=== PATIENT | male | born 1985 | race Caucasian/White ===

== ENCOUNTER 2017-05-09 10:17 | Emergency (ER) | payer OTHER ==
[2017-05-09 10:33] VITALS: BP 139/80; PULSE 70; RESP 20; TEMP 98
[2017-05-09] MEDS ORDERED: predniSONE 50 MG TAB PO STA (10:59)
--- NOTE | 2017-05-09 11:03 | ED ---
General Adult HPI - General Chief complaint: Eye Problems Stated complaint: rt eye pain Time Seen by Provider: 05/09/17 10:38 Source: patient, RN notes reviewed Mode of arrival: ambulatory Limitations: no limitations - History of Present Illness Initial comments: 32-year-old male presents emergency Department chief complaint rash on his face. Patient states that he woke up pressure with it. Patient states worse today. Patient states he feels like it is burning and very itchy to his face. Denies any visual changes no actual effect to his eyes. He states that she is in his cheeks, forehead crease. He states it almost feels like a sunburn. Patient denies any lotions or soaps. Patient states that he did spray some chemicals 2 days ago and yesterday. Patient is tenderness in the past so. Patient has a difficult to bring difficult swallowing. Denies any sores or lesions in his mouth or any rales on his body. - Related Data Previous Rx's Medication Instructions Recorded methylPREDNISolone [Medrol Dose 4 mg PO DIRECTED #1 pack 05/09/17 Pack] Allergies Allergy/AdvReac Type Severity Reaction Status Date / Time No Known Allergies Allergy Verified 05/09/17 10:34 Review of Systems ROS Statement: Those systems with pertinent positive or pertinent negative responses have been documented in the HPI. ROS Other: All systems not noted in ROS Statement are negative. Past Medical History Past Medical History: GERD/Reflux History of Any Multi-Drug Resistant Organisms: None Reported Past Surgical History: No Surgical Hx Reported Past Psychological History: No Psychological Hx Reported Smoking Status: Former smoker Past Alcohol Use History: None Reported Past Drug Use History: None Reported General Exam Limitations: no limitations General appearance: alert, in no apparent distress Head exam: Present: atraumatic, normocephalic, normal inspection Eye exam: Present: normal appearance, PERRL, EOMI. Absent: scleral icterus, conjunctival injection, periorbital swelling ENT exam: Present: normal exam, normal oropharynx, mucous membranes moist, TM's normal bilaterally, normal external ear exam Neck exam: Present: normal inspection, full ROM. Absent: tenderness, meningismus, lymphadenopathy Respiratory exam: Present: normal lung sounds bilaterally. Absent: respiratory distress, wheezes, rales, rhonchi, stridor Cardiovascular Exam: Present: regular rate, normal rhythm, normal heart sounds. Absent: systolic murmur, diastolic murmur, rubs, gallop, clicks Skin exam: Present: warm, dry, intact, normal color, rash (Erythematous slightly raised rash to the face that is blanchable there is mild swelling of his cheeks) Course Vital Signs 05/09/17 10:32 Temperature 98 F Pulse Rate 70 Respiratory 20 Rate Blood Pressure 139/80 O2 Sat by Pulse 100 Oximetry Medical Decision Making - Medical Decision Making 32-year-old male presents unresponsive for rash with this appears to be contact dermatitis. Patient is advised to continue Benadryl and may use over-the- counter 1% cortisone cream for very short period of time on his face. Patient was given oral steroids at this time. Return parameters were discussed. There is no signs of infection. Disposition Clinical Impression: Contact dermatitis Disposition: HOME SELF-CARE Condition: Stable Instructions: Contact Dermatitis (ED) Additional Instructions: Please return to the Emergency Department if symptoms worsen or any other concerns. Prescriptions: methylPREDNISolone [Medrol Dose Pack] 4 mg PO DIRECTED #1 pack Referrals: Seth Rhodes DO [Primary Care Provider] - 1-2 days Time of Disposition: 11:03
== END 2017-05-09 11:08 | disposition home or self-care (01) ==
LOC: EC 10:17
DX: L25.9 Unspecified contact dermatitis, unspecified cause (principal); R13.10 Dysphagia, unspecified; Z87.891 Personal history of nicotine dependence
CPT/HCPCS: 99283; J7512

== ENCOUNTER 2024-06-07 22:53 | Emergency (ER) | payer OTHER ==
[2024-06-07 22:57] VITALS: TEMP 97.9
[2024-06-07] MEDS: KETOROLAC 15 MG/ML 1 ML VIAL IM STA (23:55)
[2024-06-07] MEDS: CYCLOBENZAPRINE 10 MG TAB PO STA (23:55)
--- NOTE | 2024-06-08 00:03 | ED ---
General Adult HPI - General Chief complaint: Extremity Injury, Lower Stated complaint: L Leg Pain Time Seen by Provider: 06/07/24 23:13 Source: patient, RN notes reviewed Mode of arrival: ambulatory Limitations: no limitations - History of Present Illness Initial comments: 39-year-old male presenting for multiple complaints. States he has had low back pain x 3 weeks that radiates down the back of his left leg. He has been [facility] for this [facility] which [facility]. Patient was given muscle relaxers, steroids, and anti-inflammatories and advised to follow-up with PCP for MRI. Denies numbness, tingling, weakness of the lower extremities. Denies bowel or bladder incontinence, denies low-grade fevers. He is also concerned because over the past 2 days he has had 2 abscesses in the right axilla. States he "popped" one of them and expelled purulent drainage. He has never had these before. - Related Data Previous Rx's Medication Instructions Recorded methylPREDNISolone [Medrol Dose 4 mg PO DIRECTED #1 pack 05/09/17 Pack] Clindamycin Topical Soln 1 applic TOPICAL BID #30 ml 06/08/24 [Cleocin-T Topical Soln] Doxycycline [Vibramycin] 100 mg PO BID 7 Days #14 capsule 06/08/24 Allergies Allergy/AdvReac Type Severity Reaction Status Date / Time bee venom protein (honey bee) Allergy Anaphylaxis Verified 06/07/24 22:57 Review of Systems ROS Statement: Those systems with pertinent positive or pertinent negative responses have been documented in the HPI. ROS Other: All systems not noted in ROS Statement are negative. Past Medical History Past Medical History: GERD/Reflux History of Any Multi-Drug Resistant Organisms: None Reported Past Surgical History: No Surgical Hx Reported Past Psychological History: No Psychological Hx Reported Smoking Status: Never smoker Past Alcohol Use History: Occasional Past Drug Use History: None Reported General Exam Limitations: no limitations General appearance: alert, in no apparent distress Head exam: Present: atraumatic, normocephalic, normal inspection Eye exam: Present: normal appearance, PERRL, EOMI. Absent: scleral icterus, conjunctival injection, periorbital swelling Neck exam: Present: normal inspection. Absent: tenderness, meningismus, lymphadenopathy Respiratory exam: Present: normal lung sounds bilaterally. Absent: respiratory distress, wheezes, rales, rhonchi, stridor Cardiovascular Exam: Present: regular rate, normal rhythm, normal heart sounds. Absent: systolic murmur, diastolic murmur, rubs, gallop, clicks Right Shoulder Exam: Present: full ROM. Absent: normal inspection (two 2 x 2 cm areas of indurated erythema and tenderness in right axilla. No active drainage) Upper Arm exam: Present: normal inspection, full ROM. Absent: tenderness, swelling Elbow exam: Present: normal inspection, full ROM. Absent: tenderness, swelling Forearm Wrist exam: Present: normal inspection, full ROM. Absent: tenderness, swelling Hand Wrist exam: Present: normal inspection, full ROM. Absent: tenderness, swelling Vascular: Present: normal capillary refill, radial pulse. Absent: vascular compromise Back exam: Present: normal inspection, full ROM, other (Full strength and range of motion of bilateral hips, full sensation and DP pulses bilaterally, no saddle anesthesia). Absent: tenderness, CVA tenderness (R), CVA tenderness (L), paraspinal tenderness, vertebral tenderness, rash noted Neurological exam: Present: alert, oriented X3 Psychiatric exam: Present: normal affect, normal mood Skin exam: Present: warm, dry, intact, normal color. Absent: rash Course Vital Signs 06/07/24 22:54 Temperature 97.9 F Pulse Rate 106 H Respiratory 20 Rate Blood Pressure 185/94 O2 Sat by Pulse 96 Oximetry Medical Decision Making - Medical Decision Making Was pt. sent in by a medical professional or institution (, PA, MANAGER PART, urgent care, hospital, or shelter...) When possible be specific @ -No Did you speak to anyone other than the patient for history (EMS, parent, family, police, friend...)? What history was obtained from this source @ -No Did you review nursing and triage notes (agree or disagree)? Why? @ -I reviewed and agree with nursing and triage notes Were old charts reviewed (outside hosp., previous admission, EMS record, old EKG, old radiological studies, urgent care reports/EKG's, shelter records)? Report findings @ -No old charts were reviewed Differential Diagnosis (chest pain, altered mental status, abdominal pain women, abdominal pain men, vaginal bleeding, weakness, fever, dyspnea, syncope, headache, dizziness, GI bleed, back pain, seizure, CVA, palpatations, mental health, musculoskeletal)? @ -Differential Musculoskeletal Muscular strain, contusion, ligament sprain, fracture, arthritis, septic arthritis, bursitis, cellulitis, muscle spasm, nerve compression, DVT, arterial occlusion, herpes zoster, electrolyte abnormality, tumor.... This is not meant to be in all inclusive list differential Back Pain: Strain, zoster, cauda equina syndrome, epidural abscess, vertebral oste omyelitis, discitis, fracture, subluxation, disc herniation, DJD, spinal stenosis, dissection, AAA, pancreatitis, peptic ulcer disease, pyelonephritis, kidney stone, this is not meant to be an all-inclusive list. EKG interpreted by me (3pts min.). @ -None X-rays interpreted by me (1pt min.). @ -None done CT interpreted by me (1pt min.). @ -None done U/S interpreted by me (1pt. min.). @ -None done What testing was considered but not performed or refused? (CT, X-rays, U/S, labs)? Why? @ -Imaging of back not performed due to patient had x-ray for same symptoms which was negative, there are no red flag symptoms What meds were considered but not given or refused? Why? @ -None Did you discuss the management of the patient with other professionals (professionals i.e. , PA, MANAGER PART, lab, RT, psych nurse, social economist, head kiln operator, teacher, lead security officer, case work aide)? Give summary @ -No Was smoking cessation discussed for >3mins.? @ -No Was critical care preformed (if so, how long)? @ -No Were there social determinants of health that impacted care today? How? (Homelessness, low income, unemployed, alcoholism, drug addiction, transportation, low edu. Level, literacy, decrease access to med. care, group home, rehab)? @ -No Was there de-escalation of care discussed even if they declined (Discuss DNR or withdrawal of care, Hospice)? DNR status @ -No What co-morbidities impacted this encounter? (DM, HTN, Smoking, COPD, CAD, Cancer, CVA, ARF, Chemo, Hep., AIDS, mental health diagnosis, sleep apnea, morbid obesity)? @ -None Was patient admitted / discharged? Hospital course, mention meds given and route, prescriptions, significant lab abnormalities, going to OR and other pertinent info. @ -Discharged. This is a 39-year-old male presenting for low back pain x 3 weeks. He is also complaining of 2 abscesses on right axilla x 3 days. No red flag symptoms. Neurovascularly intact. On examination, there are 2 small indurated abscesses present on right axilla. Discussed diagnosis of low back strain and abscesses of right axilla. Prescribed oral doxycycline and topical clindamycin. Supportive care discussed including warm compresses. Advised to follow-up with PCP regarding low back pain as there is no sign of emergent etiology at this time. Return precautions were discussed and patient conveys understanding and agrees to plan. Case was discussed with my ED attending Dr. Solis. Patient discharged in stable condition. Undiagnosed new problem with uncertain prognosis? @ -No Drug Therapy requiring intensive monitoring for toxicity (Heparin, Nitro, Insulin, Cardizem)? @ -No Were any procedures done? @ -No Diagnosis/symptom? @ -Right axilla abscesses, low back strain Acute, or Chronic, or Acute on Chronic? @ -Acute Uncomplicated (without systemic symptoms) or Complicated (systemic symptoms)? @ -Uncomplicated Side effects of treatment? @ -No Exacerbation, Progression, or Severe Exacerbation? @ -No Poses a threat to life or bodily function? How? (Chest pain, [place], PA, pneumonia, PE, COPD, DKA, ARF, appy, cholecystitis, CVA, Diverticulitis, Homicidal, Suicidal, threat to staff... and all critical care pts) @ -No Disposition Clinical Impression: Low back strain, Abscess of right axilla Disposition: HOME SELF-CARE Condition: Stable Instructions (If sedation given, give patient instructions): Low Back Strain (ED), Abscess (ED) Additional Instructions: Take doxycycline as prescribed. Apply topical clindamycin twice daily until resolved. Follow-up with PCP as discussed. Please return to the Emergency Department if symptoms worsen or any other concerns. Prescriptions: Clindamycin Topical Soln [Cleocin-T Topical Soln] 1 applic TOPICAL BID #30 ml Doxycycline [Vibramycin] 100 mg PO BID 7 Days #14 capsule Is patient prescribed a controlled substance at d/c from ED?: No Referrals: None,Stated [Primary Care Provider] - 1-2 days Time of Disposition: 00:29
[2024-06-08 00:51] VITALS: BP 129/83; PULSE 92; RESP 18
== END 2024-06-08 00:35 | disposition home or self-care (01) ==
LOC: EC 22:53
CPT/HCPCS: 96372; 99283